=== PATIENT | female | born 1945 | race Caucasian/White ===

== ENCOUNTER 2021-11-29 07:45 | Day surgery (SDC) | payer MEDICARE ==
[~2021-11-29] VITALS: Ht 162.6 cm; Wt 84.4 kg
[~2021-11-29 07:45] MED LIST: ASPIRIN EC325 MG PO; BAYER CHEWABLE81 MG PO; CLINDAMYCIN HC300 MG PO; LISINOPRIL-HCT1 EAC2 PO; MOVE FREE ULTR1 EACH PO; PRESERVISION S1 EACH PO; SALMON OIL 1,01 EACH PO; SIMVASTATIN20 MG PO; SUPER B COMPLE150 MG PO; VITAMIN B122500 MC1; VITAMIN C WIT1000 MG PO; VITAMIN C1000 MG PO; VITAMIN D1000 UNI1 PO
--- NOTE | 2021-11-29 10:02 | NUR ---
11/29/21 1002 Jennifer Ramirez 0924 PT ARRIVED IN PACU SLEEPY WITH NO C/O'S. ABD SOFT AND PASSING FLATUS. 0940 DR AT BEDSIDE. 944 SITTING AT SIDE OF BED. 954 GETTING DRESSED WITH STAND BY ASSIST. DC INSTRUCTIONS GIVEN. ALL QUESTIONS ANSWERED. 1000 LEFT VIA W/C.
--- NOTE | 2021-11-30 08:18 | OR ---
[facility] [address] [place], [place] [address] Signed DATE OF OPERATION: 11/29/2021 SURGEON: Peter Rosenthal MD PREOPERATIVE DIAGNOSES: 1. Hyperplastic colonic polyps 2010. 2. Diverticulosis. POSTOPERATIVE DIAGNOSES: 1. 5 mm polyp at 15 cm (rectosigmoid junction). 2. 8 mm sessile polyp at hepatic flexure (snare). 3. Minimal to moderate sigmoid diverticulosis. PROCEDURE: Colonoscopy with snare polypectomy and hot biopsy. ESTIMATED BLOOD LOSS: None. INDICATIONS: Mark is a 76-year-old female asked to see me for a followup colonoscopy. She underwent her colonoscopy in 2010 with myself. She had several small hyperplastic polyps removed. She has minimal left-sided diverticulosis. She had done well with Versed and fentanyl at that time. We asked her to come back in 10 years for repeat colonoscopy. She is now retired. 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 Mark told me she does not think she never make it 89 herself. She currently has no lower GI complaints. In the office, I gave her a pamphlet on colonoscopy and she recalls the nature of the test. There is risk including, but not limited to gas bloating, crampy abdominal pain, bleeding, perforation requiring surgery, and missed diagnosis. We also discussed the need for IV conscious sedation. She had expressed understanding and wished to proceed. PROCEDURE NOTE: Mark was taken into our endoscopy suite and placed in the left lateral decubitus position. She was given a total of 10 mg of Versed and 200 mcg of fentanyl. Even then, she woke up frequently during the test and was moaning and talking to us. Fortunately, she is not too difficult to pass the scope. Nevertheless, she would certainly be better served in the future with monitored anesthesia care given her advanced age and her obesity along with what we observed today. We done a digital rectal exam and essentially this was unremarkable. She had good sphincter tone. The adult colonoscope Electronically Signed By: PETER ROSENTHAL MD 11/30/21 0818 PATIENT NAME: MARK JOYA OPERATIVE REPORT DATE OF : 43 REPORT #: [id number] PHYSICIAN: PETER ROSENTHAL MD PCP: MARYBEL COOK MD REPORT IS CONFIDENTIAL AND NOT TO BE RELEASED WITHOUT AUTHORIZATION [facility] [address] [place], [place] [address] Signed had been introduced and advanced under direct visualization of the camera. Again, it took extra sedation abdominal compression in order to advance the scope. We got right up to Mark's cecum, but we could not quite get the liquid bile out of the base of the cecum. Otherwise, her prep was quite good. We could easily see the ileocecal valve. We took pictures throughout for photodocumentation. She had a sessile polyp in the hepatic flexure that we removed with the help of the snare. Further back at the rectosigmoid junction at 15 cm, we took out a smaller polyp with the help of hot biopsy forceps. She does have diverticuli in the sigmoid colon. They are moderate in size, few in number, and scattered about. Upon retroflexion of the scope, there was no additional pathology noted above the anal canal. After this, the gas was suctioned out and the colonoscope removed. Mark tolerated the procedure quite well. RECOMMENDATIONS: I will see Mark back in my office in 7 to 14 days to review her results. More than likely, she will need a shorter followup due to her current findings. She should consider monitored anesthesia care in the future as described above. Peter Rosenthal MD ALB/MODL /[id number] cc: MD Peter Ambrocio MD Copies: MARYBEL COOK MD, ANDREW L MD ~ Electronically Signed By: PETER ROSENTHAL MD 11/30/21 0818 PATIENT NAME: MARK JOYA OPERATIVE REPORT DATE OF : 43 REPORT #: [id number] PHYSICIAN: PETER ROSENTHAL MD PCP: MARYBEL COOK MD REPORT IS CONFIDENTIAL AND NOT TO BE RELEASED WITHOUT AUTHORIZATION
--- NOTE | 2021-11-30 10:52 | PATH ---
[facility] [address] [facility] [place], [place] [address] Signed SPECIMEN(S): A COLON POLYP AT 15 CM SPECIMEN(S): B HEPATIC FLEXURE POLYP SPECIMEN SOURCE: A. COLON POLYP AT 15 CM B. HEPATIC FLEXURE POLYP CLINICAL HISTORY: Colonoscopy. History of polyps, diverticulosis. Postop: Colon polyps, diverticulosis. FINAL PATHOLOGIC DIAGNOSIS: A. Colon, 15 cm, polypectomy: - Hyperplastic polyp. B. Colon, hepatic flexure, polypectomy: - Tubular adenoma. BRP:cml:C2NR MICROSCOPIC EXAMINATION: Histologic sections of all submitted blocks are examined by light microscopy. These findings, together with the gross examination, support the pathologic diagnosis. GROSS DESCRIPTION: Two specimens are received in two containers labeled with "FRANCISCO." A. The specimen, labeled "FRANCISCO, 1," and designated on the requisition "colon polypectomy at 15 cm," is received in formalin and consists of two fragments of pink-olvera tissue (0.3 cm in greatest dimension). The specimen is submitted entirely in cassette (A1). B. The specimen, labeled "FRANCISCO, 2," and designated on the requisition "hepatic flexure polypectomy," is received in formalin and consists of two fragments of pink-olvera tissue (0.2-0.5 cm in greatest dimension). The specimen is submitted entirely in cassette (B1). AC (under the direct supervision of a pathologist) The Gross Description was prepared using a voice recognition system. The report was reviewed for accuracy; however, sound-alike word errors, addition and/or deletions may occur. If there is any question about this report, please contact Client Services. PERFORMING LABORATORY: The technical component was performed by [employer], Som Calvo, PATIENT NAME: MARK JOYA PATHOLOGY DATE OF : 43 REPORT #: [id number] PHYSICIAN: GORAN PATHOLOGY PCP: MARYBEL COOK MD REPORT IS CONFIDENTIAL AND NOT TO BE RELEASED WITHOUT AUTHORIZATION [facility] [address] [place], [place] [address] [place] [address] (CLIA# [id number]). Professional interpretation was performed by [facility], [address] [address] (CLIA# [id number]). Diagnostician: Wilberto Giraldo MD Pathologist Electronically Signed 11/30/2021 Copies: ~ PATIENT NAME: MARK JOYA PATHOLOGY DATE OF : 43 REPORT #: [id number] PHYSICIAN: GORAN PATHOLOGY PCP: MARYBEL COOK MD REPORT IS CONFIDENTIAL AND NOT TO BE RELEASED WITHOUT AUTHORIZATION
== END 2021-11-29 10:00 | disposition home or self-care (01) ==
LOC: OPS 07:45 → DS 07:45 → OPS 08:15
PROVIDERS: ATTEND Colon & Rectal Surgery
PROC: 0DBN8ZX Excision of Sigmoid Colon, Via Natural or Artificial Opening Endoscopic, Diagnostic (ICD-10-PCS; 2021-11-29)
PROC: 0DBL8ZX Excision of Transverse Colon, Via Natural or Artificial Opening Endoscopic, Diagnostic (ICD-10-PCS; principal; 2021-11-29 08:15)
DX: Z12.11 Encounter for screening for malignant neoplasm of colon (principal); D12.3 Benign neoplasm of transverse colon; I10 Essential (primary) hypertension; E03.9 Hypothyroidism, unspecified; E78.5 Hyperlipidemia, unspecified; K57.30 Diverticulosis of large intestine without perforation or abscess without bleeding; E66.9 Obesity, unspecified; Z79.82 Long term (current) use of aspirin; Z88.1 Allergy status to other antibiotic agents; Z88.8 Allergy status to other drugs, medicaments and biological substances; Z68.31 Body mass index [BMI] 31.0-31.9, adult
CPT/HCPCS: J2250; J3010

== ENCOUNTER 2022-03-11 01:44 | Emergency (ER) | payer MEDICARE ==
[~2022-03-11] VITALS: Ht 162.6 cm; Wt 83.7 kg
[2022-03-11] MEDS ORDERED: AMOX TR-K CLV1 EAC1 PO (05:40)
[2022-03-11] MEDS ORDERED: HYDROCODON-ACE1 EA10 PO (05:40)
== END 2022-03-11 06:55 | disposition home or self-care (01) ==
LOC: ED 01:44
DX: K11.21 Acute sialoadenitis (principal); K11.5 Sialolithiasis; Z20.822 Contact with and (suspected) exposure to COVID-19; I10 Essential (primary) hypertension; E78.00 Pure hypercholesterolemia, unspecified; Z87.891 Personal history of nicotine dependence; Z88.8 Allergy status to other drugs, medicaments and biological substances; Z88.1 Allergy status to other antibiotic agents; Z79.899 Other long term (current) drug therapy
CPT/HCPCS: 36415; 70487; 80053; 85025; 87502; 96375; 99284-25; A9270; C9803; J0295; J1100; J2270; J2405; Q9967; U0003

== ENCOUNTER 2024-01-13 07:19 | Emergency (ER) | payer MEDICARE ==
[~2024-01-13] VITALS: Ht 162.6 cm; Wt 75.6 kg
[~2024-01-13 07:19] MED LIST changes: +AMOX TR-K CLV1 EAC1 PO; +HYDROCODON-ACE1 EA10 PO
[2024-01-13] MEDS ORDERED: LIDOCAINE & ANTACID 35 ML BTL PO ONE (07:45)
[2024-01-13] MEDS ORDERED: PANTOPRAZOLE SODIUM 40 MG/10 ML VIAL IV ONE (07:45)
[2024-01-13 07:46] LABS: BASOPHILS 2.3 % (0-2); EOSINOPHILS 1.5 % (0-6); HEMATOCRIT 41.2 % (35.0-50.0); HEMOGLOBIN 13.8 g/dL (12.0-18.0); LYMPHOCYTES 33.2 % (24-44); MCH 36.1 (27-36); MCHC 33.5 g/dl (30-36); MCV 107.7 fl (81-99); MONOCYTES 6.3 % (0-12); NEUTROPHILS 56.7 % (39-80); PLATELET COUNT 361 K/uL (140-440); RBC 3.82 M/ul (4.3-5.7); RDW 14.4 (10.5-15.0)
[2024-01-13 07:56] LABS: ALBUMIN 3.5 g/dL (3.4-5.0); ALBUMIN/GLOBULIN RATIO 0.92 (1.1-2.4); ANION GAP 16.9 (7-21); BILIRUBIN, TOTAL 0.5 ng/dL (0.2-1.0); BUN/CREATININE RATIO 12.94 (6.0-28.6); CALCIUM 9.2 mg/dL (8.5-10.1); CREATININE, SERUM 0.85 mg/dL (0.55-1.02); MAGNESIUM 1.3 mg/dL (1.8-2.4); POTASSIUM 3.9 mmol/L (3.5-5.1); PROTEIN, TOTAL 7.3 g/dL (6.4-8.2)
[2024-01-13] MEDS ORDERED: MAGNESIUM SULFATE 2 GM/50 ML BAG IV ONE (08:30)
[2024-01-13] MEDS ORDERED: HYDROCODONE/ACETA 5/325 TAB PO ONE (09:45)
[2024-01-13] MEDS ORDERED: HYDROXYZINE HCL25 MG PO (12:10)
[2024-01-13 12:22] VITALS: BP 123/71
--- NOTE | 2024-01-15 07:39 | EKG ---
[facility] [address] [facility] [place], [place] [address] Signed Sinus rhythm with fusion complexes Left axis deviation Left bundle branch block Abnormal ECG No previous ECGs available Confirmed by FALLON MARVIN MD ([id number]) on 01/15/2024 7:39:39 AM Electronically Signed By: FALLON MARVIN 01/15/24 0739 PATIENT NAME: MARK JOYA Electrocardiogram DATE OF : 43 PHYSICIAN: FALLON MARVIN REPORT #: [id number] REPORT IS CONFIDENTIAL AND NOT TO BE RELEASED WITHOUT AUTHORIZATION
--- NOTE | 2024-01-15 07:39 | EKG ---
[facility] [address] [facility] [place] [address] Signed Normal sinus rhythm Left axis deviation Left bundle branch block Abnormal ECG When compared with ECG of 13-JAN-2024 07:21, (Unconfirmed) fusion complexes are no longer present Confirmed by FALLON MARVIN MD ([id number]) on 01/15/2024 7:39:29 AM Electronically Signed By: FALLON MARVIN 01/15/24 0739 PATIENT NAME: TOANMARK Electrocardiogram DATE OF : 43 PHYSICIAN: FALLON MARVIN REPORT #: [id number] REPORT IS CONFIDENTIAL AND NOT TO BE RELEASED WITHOUT AUTHORIZATION
== END 2024-01-13 12:18 | disposition home or self-care (01) ==
LOC: ED 07:19
PROVIDERS: Emergency Medicine
DX: R07.89 Other chest pain (principal); E83.42 Hypomagnesemia; I10 Essential (primary) hypertension; E78.5 Hyperlipidemia, unspecified; Z87.891 Personal history of nicotine dependence; Z88.8 Allergy status to other drugs, medicaments and biological substances; Z88.1 Allergy status to other antibiotic agents; Z79.899 Other long term (current) drug therapy
CPT/HCPCS: 36415; 71046; 71260; 80053; 83735; 84484; 85025; 85379; 93005; 93010; 96375; 99285-25; C9113; J3475; Q9967

== ENCOUNTER 2025-01-05 18:02 | Observation (INO) | payer MEDICARE ==
[~2025-01-05] VITALS: Ht 162.6 cm; Wt 63.6 kg
[~2025-01-05 18:02] MED LIST changes: +HYDROXYZINE HCL25 MG PO
[2025-01-05 18:39] LABS: BASOPHILS 0.5 % (0.1-1.2); EOSINOPHILS 0 % (0.7-5.8); HEMATOCRIT 34.7 % (34.1-44.9); HEMOGLOBIN 12.5 g/dL (11.2-15.7); LYMPHOCYTES 17.3 % (19.3-51.7); MCV 97.2 fL (79.4-94.8); MONOCYTES 15.7 % (4.7-12.5); NEUTROPHILS 66.2 % (34.0-71.1); PLATELET COUNT 252 K/uL (182-369); RBC 3.57 M/uL (3.93-5.22)
[2025-01-05 18:57] LABS: ALBUMIN 3.3 g/dL (3.4-5.0); ALBUMIN/GLOBULIN RATIO 1.06 (1.1-2.4); ANION GAP 13.4 (7-21); BILIRUBIN, TOTAL 0.6 mg/dL (0.2-1.0); BUN/CREATININE RATIO 10.58 (6.0-28.6); CALCIUM 9.6 mg/dL (8.5-10.1); CREATININE, SERUM 1.7 mg/dL (0.55-1.02); MAGNESIUM 1.2 mg/dL (1.8-2.4); POTASSIUM 3.4 mmol/L (3.5-5.1); PROTEIN, TOTAL 6.4 g/dL (6.4-8.2)
[2025-01-05] MEDS ORDERED: SODIUM CHLORIDE 0.9% 1,000 ML IV ONE (19:45)
[2025-01-05] MEDS ORDERED: MAGNESIUM SULFATE 2 GM/50 ML BAG IV ONE (19:45)
[2025-01-05] MEDS ORDERED: MAGNESIUM OXIDE 400 MG TABLET PO ONE (19:45)
[2025-01-05] MEDS ORDERED: SODIUM CHLORIDE 0.45% 1,000 ML IV ONE (20:30)
[2025-01-05 20:50] VITALS: BP 120/60
--- NOTE | 2025-01-05 20:55 | NUR ---
pt ARRIVED TO THE FLOOR VIA STRETCHER. pt TRANSFERED TO THE BED VIA SLIDE SHEET. REPORT RECEIVED FROM PARENT TRAINER. pt DENIES ANY OTHER NEEDS AT THIS TIME. CALL LIGHT WITHIN REACH. ADMISSION AND ASSESSMENT DONE. IV ASSESSED, WNL.
[2025-01-05 21:00] VITALS: BP 120/60
[2025-01-05] MEDS ORDERED: ondansetron HCL 4 MG/2 ML VIAL IV PRN (22:45)
[2025-01-05] MEDS ORDERED: ACETAMINOPHEN 325 MG TAB PO PRN (22:45)
[2025-01-05 22:55] LABS: ANION GAP 11.9 (7-21); BUN/CREATININE RATIO 11.25 (6.0-28.6); CALCIUM 9.3 mg/dL (8.5-10.1); CREATININE, SERUM 1.51 mg/dL (0.55-1.02); POTASSIUM 2.9 mmol/L (3.5-5.1)
--- NOTE | 2025-01-05 22:55 | NUR ---
CALL LIGHT ANSWERED. PATIENT REQUESTED TO HAVE BEDPAN TO URINATE. FAUCET WATER ON PER PATIENT. PATIENT UNABLE TO VOID. PATIENT GOT UP TO BEDSIDE COMMODE 1 PA. PATIENT ABLE TO VOID 20ML. COLLECTED AND SENT TO LAB. PATIENT IS BACK IN BED. WARM BLANKET PROVIDED. NO OTHER NEEDS AT THIS TIME. CALL LIGHT AND SIDE TABLE WITHIN REACH.
--- NOTE | 2025-01-05 23:10 | NUR ---
THIS RN CALLED THE MD FOR THE RESULTS OF THE BMP. NEW ORDERS PLACED AND VERIFIED WITH REPEAT BACK METHOD. NO OTHER NEEDS AT THIS TIME. CALL LIGHT WITHIN REACH.
[2025-01-05 23:11] LABS: BILIRUBIN, URINE NEGATIVE (negative); BLOOD/HGB, URINE NEGATIVE (Negative); KETONE, URINE TRACE (Negative); LEUK ESTERASE, URINE MODERATE (negative); NITRITE, URINE NEGATIVE (negative)
[2025-01-05] MEDS ORDERED: SODIUM CHLORIDE 0.9% 1,000 ML IV SCH (23:15)
[2025-01-05] MEDS ORDERED: POTASSIUM CHLORIDE 10 MEQ TABCR PO ONE (23:15)
[2025-01-05 23:17] LABS: BACTERIA, URINE 3+ /hpf (negative); CASTS, URINE NONE SEEN \\lpf; CRYSTALS, URINE NONE SEEN (0-1+); RED BLOOD CELLS, URINE 0-1 /hpf (0-5)
[2025-01-05 23:18] LABS: REFLEX CULTURE, URINE No (No)
[2025-01-05 23:19] LABS: COLLECTION TYPE, URINE CLEAN CATCH
[2025-01-05] MEDS ORDERED: POTASSIUM CHLORIDE 10 MEQ/100 ML BAG IV SCH (23:30)
[2025-01-06] VITALS (10 sets, daily range): BP systolic 113–143; BP diastolic 54–80
--- NOTE | 2025-01-06 00:07 | NUR ---
IN TO ADMINISTER pt SCHEDULED MEDS. pt NEEDED PO POTASIUM TO BE CUT IN HALF. pt ABLE TO GET HALF THE PILLS DOWN AND STARTED TO HAVE A PANICK ATTACK AND REFUSED TO TAKE ANY MORE. pt STATES PILLS ARE STILL TO BIG. pt THEN STARTED TO SIT AT THE EDGE OF THE BED TO HELP CALM HER SELF DOWN. IV POTASIUM STARTED AND REDUSED TO 50mL/HR FOR pt COMFORT. WARM BLAKET PROVIDED. pt DENIES ANY OTHER NEEDS AT THIS TIME. CALL LIGHT WITHIN REACH.
--- NOTE | 2025-01-06 02:00 | NUR ---
VITAL SIGNS AND ASSESSMENT DONE. pt UP TO THE BSC WITH FWW. pt BACK TO BED. pt DENIES ANY OTHER NEEDS AT THIS TIME. CALL LIGHT WITHIN REACH. IV POTASIUM INFUSING PER ORDER SEE MAR.
[2025-01-06 02:17] LABS: ANION GAP 10.6 (7-21); BUN/CREATININE RATIO 12.31 (6.0-28.6); CALCIUM 9.4 mg/dL (8.5-10.1); CREATININE, SERUM 1.38 mg/dL (0.55-1.02); POTASSIUM 3.6 mmol/L (3.5-5.1)
--- NOTE | 2025-01-06 04:10 | NUR ---
IN RM TO HAND THE LAST BAG OF POTASIUM. pt UP TO THE BSC. pt BACK TO BED. SCHEDULED MEDS ADMINISTERED PER ORDER. pt DENIES ANY OTHER NEEDS AT THIS TIME. CALL LIGHT WITHIN REACH.
--- NOTE | 2025-01-06 06:10 | NUR ---
VITAL SIGNS DONE. pt UP TO THE BSC. pt DENIES ANY OTHER NEEDS AT THIS TIME. CALL LIGHT WITHIN REACH.
--- NOTE | 2025-01-06 07:25 | EKG ---
[facility] [address] [facility] [place] [address] Signed Normal sinus rhythm Left axis deviation Left bundle branch block Abnormal ECG When compared with ECG of 13-JAN-2024 11:57, No significant change was found Confirmed by Aren Bryant MD ([id number]) on 01/06/2025 7:25:46 AM Electronically Signed By: AREN BRYANT MD 01/06/25 0725 PATIENT NAME: ZEKEBILLMARK Electrocardiogram DATE OF : 43 PHYSICIAN: AREN BRYANT MD REPORT #: [id number] REPORT IS CONFIDENTIAL AND NOT TO BE RELEASED WITHOUT AUTHORIZATION
[2025-01-06] MEDS ORDERED: ACETAMINOPHEN 325 MG TAB PO PRN (07:30)
[2025-01-06] MEDS ORDERED: ondansetron HCL 4 MG/2 ML VIAL IV PRN (07:30)
[2025-01-06 07:33] LABS: BASOPHILS 0.6 % (0.1-1.2); EOSINOPHILS 0.6 % (0.7-5.8); HEMATOCRIT 29.2 % (34.1-44.9); HEMOGLOBIN 10.7 g/dL (11.2-15.7); LYMPHOCYTES 33.4 % (19.3-51.7); MCH 35.7 PG (25.6-32.2); MCHC 36.6 g/dL (32.2-35.5); MCV 97.3 fL (79.4-94.8); MONOCYTES 15.9 % (4.7-12.5); NEUTROPHILS 49.2 % (34.0-71.1); PLATELET COUNT 234 K/uL (182-369)
[2025-01-06 07:44] LABS: ANION GAP 11.4 (7-21); BUN/CREATININE RATIO 12.69 (6.0-28.6); CALCIUM 8.8 mg/dL (8.5-10.1); CREATININE, SERUM 1.26 mg/dL (0.55-1.02); MAGNESIUM 1.7 mg/dL (1.8-2.4); POTASSIUM 4.4 mmol/L (3.5-5.1)
--- NOTE | 2025-01-06 07:53 | NUR ---
PT AWAKE SITTING UP IN BED AT TIME OF SHIFT REPORT. SHE C/O LEFT SIDE ABDOMINAL ACHE. WARM PACK PROVIDED TYLENOL OFFERED. FRESH H20 TO BEDSIDE. CALL LIGHT IN REACH
[2025-01-06] MEDS ORDERED: MAGNESIUM SULFATE 2 GM/50 ML BAG IV ONE (08:00)
--- NOTE | 2025-01-06 08:48 | NUR ---
HOURLY ROUNDING. BOARD HAS BEEN UPDATED AND CALL LIGHT HAS BEEN PLACED WITHIN REACH. NO REQUEST FROM PATIENT AT THIS TIME
[2025-01-06] MEDS ORDERED: hydrOXYzine pamoate 25 MG CAP PO PRN (09:00)
[2025-01-06] MEDS ORDERED: ESCITALOPRAM OXALATE 10 MG TAB PO SCH (09:00)
[2025-01-06] MEDS ORDERED: ENOXAPARIN SODIUM 40 MG/0.4 ML SYR SUB-Q SCH (09:00)
--- NOTE | 2025-01-06 09:11 | NUR ---
DR QUEVEDO IN TO SEE PT DISCUSSES PLAN GOING FORWARD ALL QUESTIONS ANSWERED. PT UP TO THE TOILET DOES PERSONAL CARES WHILE IN THE BATHROOM. REQUESTS BACK TO BED INSTEAD OF THE CHAIR. EATS [employer]UR[employer] ONLY DENIES OFFER OF OTHER ITEMS.
[2025-01-06] MEDS ORDERED: SIMETHICONE 80 MG CHEW PO PRN (09:15)
[2025-01-06 09:24] LABS: TSH, 3RD GENERATION 0.606 uIU/mL (0.358-3.740)
--- NOTE | 2025-01-06 10:49 | NUR ---
PT RESTING EYES CLOSED CALL LIGHT IN REACH
--- NOTE | 2025-01-06 11:50 | NUR ---
Spoke with Rocio. Pt lives alone and has no steps into her home, but does have steps into the basement where her laundry is. She started using a walker a week ago as she felt safer with it. Pt does her own grocery shopping, cooking, and cleaning. Per notes pt is cutting back on alcohol. She states she does not want to dc today and she feels very poor. Pt had two epsisodes during our conversation where she would stop speaking in the middle of a sentence and then begin rapidly blinking for 45 sec. She resumed the conversation where she had stopped. She does not answer question about her alcohol use. I will ask Dr. Bryant if it is possible for her to stay another night and update about the eye blinking.
[2025-01-06] MEDS ORDERED: PHARMACY RENAL DOSE ADJUSTMENT 1 DOSE MISC PO SCH (12:00)
[2025-01-06 12:18] LABS: ANION GAP 11.9 (7-21); BUN/CREATININE RATIO 11.66 (6.0-28.6); CALCIUM 9.1 mg/dL (8.5-10.1); CREATININE, SERUM 1.2 mg/dL (0.55-1.02); POTASSIUM 3.9 mmol/L (3.5-5.1)
--- NOTE | 2025-01-06 13:45 | NUR ---
EVENING MEAL PREFRENCE ORDERED FOR PT. SHE IS RESTING EYES CLOSED AT THIS TIME
[2025-01-06] MEDS ORDERED: SIMVASTATIN40 MG PO (14:30)
--- NOTE | 2025-01-06 14:31 | NUR ---
MED REC COMPLETE
--- NOTE | 2025-01-06 14:44 | NUR ---
UR CLINICAL REVIEW: 2 MN FOR VERSALUS-PER SHEEP STICKER MEET OBS FOR MIRTA WITH NEED FOR HYDRATION/MONITORING MEDICARE OBS 01/06/25 @ 0731 ORDER MATCHES REG NO AUTH REQUIRED PER MEDICARE GUIDELINES DISCHARGE DISPO PENDING FURTHER EVALUATION 01/07/25
[2025-01-06] MEDS ORDERED: SODIUM CHLORIDE 1 GM TAB PO ONE (14:45)
[2025-01-06 18:19] LABS: ANION GAP 8.8 (7-21); BUN/CREATININE RATIO 9.48 (6.0-28.6); CALCIUM 8.8 mg/dL (8.5-10.1); CREATININE, SERUM 1.16 mg/dL (0.55-1.02); POTASSIUM 3.8 mmol/L (3.5-5.1)
--- NOTE | 2025-01-06 19:10 | NUR ---
REPORT RECEIVED FROM ANDERS BROOKE. BOARD UPDATED. pt RESTING IN THE BED. pt DENIES ANY OTHER NEEDS AT THIS TIME. CALL LIGHT WITHIN REACH.
--- NOTE | 2025-01-06 20:10 | NUR ---
CALL LIGHT ANSWERED. SBA WITH FWW TO RESTROOM FOR UNMEASURED VOID AND BACK TO BED. CALL LIGHT AND PERSONAL SUPPLIES WITHIN REACH.
--- NOTE | 2025-01-06 21:20 | NUR ---
ASSESSMENT AND VITAL SIGNS DONE. PRN MEDS ADMINISTERED. IV ASSESSED, WNL. IVF INFUSING PER ORDER. pt DENIES ANY OTHER NEEDS AT THIS TIME. CALL LIGHT WITHIN REACH.
--- NOTE | 2025-01-06 23:20 | NUR ---
pt RESTING IN THE BED WITH EYES CLOSED. RR EVEN AND UNLABORED. CALL LIGHT WITHIN REACH.
--- NOTE | 2025-01-07 00:58 | NUR ---
CALL LIGHT ANSWERED. SBA WITH FWW TO RESTROOM FOR 200 ML VOID AND BACK TO BED. IVF INFUSING WNL. CALL LIGHT IN REACH.
--- NOTE | 2025-01-07 01:07 | NUR ---
pt IV ALARMING. IVF INFUSING PER ORDER. NEW BAG HUNG. pt DENIES ANY OTHER NEEDS AT THIS TIME. CALL LIGHT WITHIN REACH.
--- NOTE | 2025-01-07 03:16 | NUR ---
pt RESTING IN THE BED. pt DENIES ANY NEEDS AT THIS TIME. CALL LIGHT WITHIN REACH.
[2025-01-07 05:40] LABS: BASOPHILS 0.7 % (0.1-1.2); EOSINOPHILS 0.7 % (0.7-5.8); HEMOGLOBIN 10.5 g/dL (11.2-15.7); MCH 35.1 PG (25.6-32.2); MCV 100.3 fL (79.4-94.8); MONOCYTES 9.2 % (4.7-12.5); NEUTROPHILS 59.2 % (34.0-71.1); PLATELET COUNT 208 K/uL (182-369); RBC 2.99 M/uL (3.93-5.22)
[2025-01-07 05:55] VITALS: BP 141/63
[2025-01-07 05:56] LABS: ANION GAP 12.7 (7-21); BUN/CREATININE RATIO 10.3 (6.0-28.6); CALCIUM 8.6 mg/dL (8.5-10.1); CREATININE, SERUM 0.97 mg/dL (0.55-1.02); MAGNESIUM 1.8 mg/dL (1.8-2.4); POTASSIUM 3.7 mmol/L (3.5-5.1)
[2025-01-07 05:58] VITALS: BP 141/63
--- NOTE | 2025-01-07 06:26 | NUR ---
IN RM TO DO VITAL SIGNS. pt DENIES ANY OTHER NEEDS AT THIS TIME. CALL LIGHT WITHIN REACH.
--- NOTE | 2025-01-07 07:10 | NUR ---
RECIEVED REPORT FROM MENDY VELEZ. PT SITTING UP IN BED AWAKE, STATES NO CURRENT NEEDS, CALL LIGHTY WITHIN REACH.
--- NOTE | 2025-01-07 08:35 | NUR ---
PT UP TO RESTROOM WITH FWW AND LTM. PT STATES SHE WILL USE CALL LIGHT WHEN FINISHED, CALL LIGHT WITHIN REACH.
--- NOTE | 2025-01-07 08:38 | NUR ---
PT BACK TO BED AFTER USING RESTROOM. PT STATES NO FURTHER NEEDS AT THIS TIME. CALL LIGHT WITHIN REACH.
[2025-01-07] MEDS ORDERED: HYDROXYZINE PAM25 MG PO (08:55)
[2025-01-07] MEDS ORDERED: ESCITALOPRAM OX10 MG PO (08:55)
[2025-01-07 09:24] VITALS: BP 118/67
[2025-01-07 09:27] VITALS: BP 118/67
--- NOTE | 2025-01-07 09:35 | NUR ---
Spoke with Rocio. She is dressed and waiting for her friend to give her a ride home. Friends will assist her if needed when at home. Pt denies any needs and states she is feeling better and ready to go home.
--- NOTE | 2025-01-07 09:36 | NUR ---
PT DRESSED IN OWN CLOTHES WITH SOME ASSISTANCE. VSS. IV DC'D WNL. PT STATES NO FURTHER NEEDS OR QUESTIONS AT THIS TIME. PT BELONGINGS GATHERED FOR DC. CALL LIGHT WITHIN REACH.
== END 2025-01-07 10:50 | disposition home or self-care (01) ==
LOC: ED 18:02 → MS 18:03
PROVIDERS: Emergency Medicine; ADMIT Student in an Organized Health Care Education/Training Program; ATTEND Student in an Organized Health Care Education/Training Program
DX: N17.9 Acute kidney failure, unspecified (principal); E83.42 Hypomagnesemia; I10 Essential (primary) hypertension; E78.5 Hyperlipidemia, unspecified; I44.7 Left bundle-branch block, unspecified; F10.90 Alcohol use, unspecified, uncomplicated; E87.1 Hypo-osmolality and hyponatremia; F41.9 Anxiety disorder, unspecified; Z88.8 Allergy status to other drugs, medicaments and biological substances; Z79.899 Other long term (current) drug therapy; Z87.891 Personal history of nicotine dependence
CPT/HCPCS: 36415; 80048; 80053; 81001; 83735; 84439; 84443; 84484; 85025; 87045; 87046; 93005; 93010; 96365; 96366; 96367; 96372; 96376; 97161; 97165; 97530; 99285-25; A9270; G0378; J1650; J3475; J3480; J7030; Q0177

== ENCOUNTER 2025-01-16 13:40 | Emergency (ER) | payer MEDICARE ==
[~2025-01-16 13:40] MED LIST changes: +ESCITALOPRAM OX10 MG PO; +HYDROXYZINE PAM25 MG PO; +SIMVASTATIN40 MG PO
[2025-01-16] MEDS ORDERED: IBLOOD GLUCOSE TEST STRIP 1 EA TEST XX ONE (13:45)
--- OUTSIDE RECORDS SUMMARY | 2025-01-16 13:47 | XMS ---
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 Danelle has no Care Guidelines for this patient. Jigna VISIT COUNT (12 MO.) [address] [facility] [place]. TOTAL 2 NOTE: Visits indicate total known visits. ED/C VISIT TRACKING (12 MO.) 01/16/2025 13:[address] [facility] [place] TYPE: Emergency COMPLAINT: - FALL 01/05/2025 18:02 [facility] [place] TYPE: Emergency COMPLAINT: - ANXIETY INPATIENT VISIT TRACKING (12 MO.) 01/05/2025 18:03 [facility] [place] TYPE: Observation COMPLAINT: - HYPONATREMIA,HYPOMAGNESEMIA DIAGNOSES: - Acute kidney failure, unspecified - Alcohol use, unspecified, uncomplicated - Allergy status to other drugs, medicaments and biological substances - Anxiety disorder, unspecified - Essential (primary) hypertension - Hyperlipidemia, unspecified - Hypo-osmolality and hyponatremia - Hypomagnesemia - Left bundle-branch block, unspecified - Other equipment operator intermodal yard (current) drug therapy - Personal history of nicotine dependence - Shortness of breath [email or web address]
[2025-01-16 14:42] LABS: BASOPHILS 0.6 % (0.1-1.2); EOSINOPHILS 0.2 % (0.7-5.8); HEMATOCRIT 35.2 % (34.1-44.9); HEMOGLOBIN 12.2 g/dL (11.2-15.7); LYMPHOCYTES 15.4 % (19.3-51.7); MCH 35.4 PG (25.6-32.2); MCHC 34.7 g/dL (32.2-35.5); MONOCYTES 8.5 % (4.7-12.5); NEUTROPHILS 75.1 % (34.0-71.1); PLATELET COUNT 292 K/uL (182-369); RBC 3.45 M/uL (3.93-5.22)
[2025-01-16 14:53] LABS: ALBUMIN 2.9 g/dL (3.4-5.0); ALBUMIN/GLOBULIN RATIO 0.94 (1.1-2.4); ANION GAP 13.4 (7-21); BILIRUBIN, TOTAL 0.6 mg/dL (0.2-1.0); BUN/CREATININE RATIO 10.57 (6.0-28.6); CREATININE, SERUM 1.04 mg/dL (0.55-1.02); POTASSIUM 3.4 mmol/L (3.5-5.1)
[2025-01-16 14:56] LABS: MAGNESIUM 0.9 mg/dL (1.8-2.4)
[2025-01-16] MEDS ORDERED: MAGNESIUM SULFATE 2 GM/50 ML BAG IV ONE ×3 (15:15→16:00)
[2025-01-16] MEDS ORDERED: CALCIUM CARBONATE 500 MG CHEW PO ONE (19:00)
[2025-01-16 20:41] VITALS: BP 162/76
--- NOTE | 2025-01-17 10:13 | EKG ---
[facility] [address] [facility] [place] [address] Signed Normal sinus rhythm Left axis deviation Left bundle branch block Abnormal ECG When compared with ECG of 05-JAN-2025 18:05, No significant change was found Confirmed by Aileen Hernandez DO ([id number]) on 01/17/2025 10:13:29 AM Electronically Signed By: AILEEN HERNANDEZ DO 01/17/25 1013 PATIENT NAME: MARK JOYA Electrocardiogram DATE OF : 43 PHYSICIAN: AILEEN HERNANDEZ DO REPORT #: [id number] REPORT IS CONFIDENTIAL AND NOT TO BE RELEASED WITHOUT AUTHORIZATION
== END 2025-01-16 20:41 | disposition short-term general hospital (02) ==
LOC: ED 13:40
PROVIDERS: Emergency Medicine
DX: R55 Syncope and collapse (principal); E78.00 Pure hypercholesterolemia, unspecified; I10 Essential (primary) hypertension; Z79.899 Other long term (current) drug therapy; Z88.8 Allergy status to other drugs, medicaments and biological substances; Z88.1 Allergy status to other antibiotic agents; Z87.891 Personal history of nicotine dependence
CPT/HCPCS: 36415; 70450; 80053; 83735; 84484; 85025; 93005; 93010; 96365; 96376; 99285-25; J3475

== ENCOUNTER 2025-06-08 17:24 | Inpatient (IN) | payer MEDICARE | END 2025-06-18 13:55 | DRG 682 | LOC: ED 17:24 → CCU 20:17 → MS 06-12 07:00 | PROVIDERS: ADMIT Family Medicine | PROC: 0T9B70Z Drainage of Bladder with Drainage Device, Via Natural or Artificial Opening (ICD-10-PCS; principal; 2025-06-09) | PROC: 3E033XZ Introduction of Vasopressor into Peripheral Vein, Percutaneous Approach (ICD-10-PCS; 2025-06-09) | DX: N17.9 Acute kidney failure, unspecified (principal); I50.43 Acute on chronic combined systolic (congestive) and diastolic (congestive) heart failure; F05 Delirium due to known physiological condition; E87.1 Hypo-osmolality and hyponatremia; F10.139 Alcohol abuse with withdrawal, unspecified; M62.82 Rhabdomyolysis; E87.20 Acidosis, unspecified; I11.0 Hypertensive heart disease with heart failure; F03.90 Unspecified dementia, unspecified severity, without behavioral disturbance, psychotic disturbance, mood disturbance, and anxiety; Z66 Do not resuscitate; N28.89 Other specified disorders of kidney and ureter; K59.00 Constipation, unspecified; M25.552 Pain in left hip; R94.31 Abnormal electrocardiogram [ECG] [EKG]; E78.00 Pure hypercholesterolemia, unspecified; I44.7 Left bundle-branch block, unspecified; Z87.891 Personal history of nicotine dependence; Z88.1 Allergy status to other antibiotic agents; Z88.8 Allergy status to other drugs, medicaments and biological substances ==